=== PATIENT | female | born 1935 | race Caucasian/White ===

== ENCOUNTER 2017-09-02 08:20 | Outpatient (CLI) | payer MEDICARE, BC ==
--- NOTE | ~2017-09-02 | HEMODYNAMI ---
PATIENT:SRINIVAS JURADO MEDICAL RECORD: [id number] : 31 LOCATION:[facility] ADMISSION DATE: 09/02/17 Generatedon:09/02/201710:42 Patient name: SRINIVAS JURADO Patient #: [id number] SSN: DO B: 1935 Date of study: 09/02/2017 Page: Of Hemodynamic Procedure Report Patient Data Patient Demographics Procedure consent was obtained First Name: SRINIVAS Gender: Female Last Name: RHIANNON : 1935 [facility] Initial: P Age: 82 year(s) Patient #: [id number] Race: Unknown Additional ID: [id number] Contact details Address: [facility] [place] State: [place] City: [place] Zip code: [address] Past Medical History Allergies Allergen Reaction Date Comments Reported Codeine 09/02/2017 Penicillins 09/02/2017 Penicillins 09/02/2017 Sulfa drugs 09/02/2017 Other allergy 09/02/2017 zofrelizabeth Levaquin Admission Admission Data Admission Date: 09/02/2017 Admission Time: 8:20 Procedure Procedure Types Cath Procedure Diagnostic Procedure [facility] w/Coronaries Miscellaneous Procedures Moderate Sedation up to 15 minutes Procedure Description Procedure Date Procedure Date: 09/02/2017 Procedure Start Time: 10:27 Procedure End Time: 10:41 Procedure Staff Name Function Mookie Vargas MD Performing Physician Dania Forrester RT Scrub Tiffany Hogan RN Nurse Getachew Moss RT Monitor Procedure Data Cath Procedure Fluoroscopy Diagnostic fluoroscopy Total fluoroscopy Time: 0.9 time: 0.9 min min Diagnostic fluoroscopy Total fluoroscopy dose: 157 dose: 157 mGy mGy Contrast Material Contrast Material Type Amount (ml) Isovue 300 29 Entry Location Entry Primary Successful Side Size Upsize Upsize Entry Closure Cerda ccessful Closure Location (Fr) 1 (Fr) 2 (Fr) Remarks Device Remarks Radial Right 6 Fr Mechanical artery Short Compression Estimated blood loss: 5 ml Diagnostic catheters Device Type Used For End Catheter Placement Diagnostic Terumo Procedure Optitorque 5Fr [place] 4.5 catheter Procedure Complications No complications Procedure Medications Medication Administration Route Dosage Oxygen NC 2 l/min Lidocaine 2% added to field 20 Heparin Flush Bag added to field 2 bags (1000units/500ml NS) 0.9% NaCl I.V. 100 ml/hr Versed I.V. 1 mg Fentanyl I.V. 50 mcg Versed I.V. 1 mg Fentanyl I.V. 50 mcg Versed I.V. 0.5 mg Fentanyl I.V. 25 mcg Radial Cocktail I.A. 1 syringe (Verapomil 2mg/Nitro 400mcg/Heparin 1500units) Hemodynamics Rest Heart Rate: 55 (bpm) Snapshots Pre Cath Intra NCS Post Cath Vital Signs Time Heart Resp SPO2 etCO2 NIBP Rhythm Pain Sedation Rate (ipm) (%) (mmHg) (mmHg) Status Level (bpm) 10:07:27 47 16 99 0 93/48(73) SB 0 (11) 10(A) , No pain 10:12:01 46 14 97 35.7 109/55(86) SB 0 (11) 10(A) , No pain 10:16:40 58 15 97 35.7 98/50(69) SB 0 (11) 10(A) , No pain 10:21:18 53 16 98 38.8 89/41(59) SB 0 (11) 10(A) , No pain 10:25:55 52 15 98 12.1 84/38(59) SB 0 (11) 9(A) , No pain 10:30:27 49 15 98 34.9 89/44(62) SB 0 (11) 9(A) , No pain 10:35:04 71 15 98 35 101/41(65) SB 0 (11) 9(A) , No pain 10:39:42 62 16 96 35.7 82/37(56) SB 0 (11) 10(A) , No pain Medications Time Medication Route Dose Verified Delivered Reason Notes Effectiveness by by 10:12:42 Oxygen NC 2 l/min Mookie Allen used for Sam Hogan RN procedure 10:12:51 Lidocaine 2% added 20ml Mookie Damico for local to vial Sam Vargas MD anesthetic field 10:12:58 Heparin Flush added 2 bags Mookie Damico used for Bag to Sam Vargas MD procedure (1000units/500ml field NS) 10:13:08 0.9% NaCl I.V. 100 Mookie Allen Per ml/hr Sam Hogan RN physician 10:24:40 Versed I.V. 1 mg Mookie Allen for sedation Sam Hogan RN 10:24:46 Fentanyl I.V. 50 mcg Mookie Allen for sedation Sam Hogan RN 10:30:03 Versed I.V. 1 mg Mookie Allen for sedation Sam Hogan RN 10:30:07 Fentanyl I.V. 50 mcg Mookie Allen for sedation Sam Hogan RN 10:34:08 Radial Cocktail I.A. 1 Mookie Damico for (Verapomil syringe Sam Vargas MD vasodilation 2mg/Nitro 400mcg/Heparin 1500units) 10:34:55 Versed I.V. 0.5 mg Mookie Allen for sedation Sam Hogan RN 10:34:59 Fentanyl I.V. 25 mcg Mookie Allen for sedation Sam Hogan RN Procedure Log Time Note 9:49:21 Tiffany Hogan RN sent for patient. Start room use. 9:49:23 Time tracking: Regular hours 9:49:28 Plan of Care:Hemodynamics will remain stable., Cardiac rhythm will remain stable., Comfort level will be maintained., Respiratory function will remain adequate., Patient/ family verbilizes understanding of procedure., Procedure tolerated without complication., Recovers from procedure without complications.. 10:01:43 Patient received from Pre/Post Procedure Room to [facility] 1 Alert and oriented. Tansferred to table in Supine position. 10:01:44 Warm blankets applied, and hollie hugger turned on for patient comfort. 10:01:45 Correct patient and procedure confirmed by team. 10:01:47 Signed procedure consent form obtained from patient. 10:01:48 ECG and BP/O2 sat monitors applied to patient. 10:06:34 Vital chart was started 10:12:42 Oxygen 2 l/min NC was administered by Tiffany Hogan RN; used for procedure; 10:12:51 Lidocaine 2% 20ml vial added to field was administered by Mookie Vargas MD; for local anesthetic; 10:12:58 Heparin Flush Bag (1000units/500ml NS) 2 bags added to field was administered by Mookie Vargas MD; used for procedure; 10:13:08 0.9% NaCl 100 ml/hr I.V. was administered by Tiffany Hogan RN; Per physician; 10:13:54 Baseline sample Acquired. 10:15:06 Rhythm: sinus rhythm 10:15:08 Full Disclosure recording started 10:15:13 H&P Date Dictated: 09/02/2017 Within 30 days and on chart., H&P Addendum completed by physician on day of procedure. (MUST COMPLETE FOR ALL OUTPATIENTS). 10:15:15 Pre-procedure instructions explained to patient. 10:15:17 Pre-op teaching completed and patient verbalized understanding. 10:15:19 Family in waiting room. 10:15:21 Patient NPO since Midnight. 10:15:34 Patient allergic to Codeine 10:16:10 Patient allergic to Penicillins 10:17:48 Patient allergic to Penicillins 10:18:32 Patient allergic to Sulfa drugs 10:18:55 Patient allergic to Other allergyzofran, Levaquin 10:19:05 Is the patient allergic to Iodine/contrast media? No. 10:19:08 Is patient on blood thinner?No 10:20:15 Patient diabetic? No. 10:20:22 Patient not . Patient has had hysterectomy. 10:20:24 Snore? Yes 10:20:27 Previous problem with sedation/anesthesia? No ? 10:20:29 Sleep apnea? No 10:20:30 Deviated septum? No 10:20:32 Opens mouth fully? Yes 10:20:33 Sticks out tongue? Yes 10:20:35 Airway obstruction? No ? 10:20:38 Dentures? No ? 10:20:43 Pre procedure: right dorsailis pedis pulse 1+ Palpable, but thready & weak; easily obliterated 10:20:46 Modified Brown's test Ulnar < 7 seconds 10:20:52 Patient pain scale 0/10 ?. 10:20:58 IV patent on arrival in left forearm with 0.9% NaCl at [facility]. 10:21:09 Lab results completed and on chart. 10:21:13 Right Radial & Right Groin area was prepped with chlora-prep and draped in sterile fashion 10:21:19 Alarms reviewed by R. N. 10:21:21 Sharps counted by scrub and verified by R.N. 10::23 Physician paged 10:24:09 Zero performed for pressure channel P1 10:24:21 Physician arrived 10::24 --------ALL STOP TIME OUT------ ::24 Final Timeout: patient, procedure, and site verified with staff and physician. All members of the team are in agreement. 10:24:26 Right Radial & Right Groin site verified by team. 10::33 Physical assessment completed. ASA score P 2 - A patient with mild systemic disease as per Mookie Vargas MD. 10:24:38 Sedation plan: IV Moderate Sedation Versed, Fentanyl 10:24:40 Versed 1 mg I.V. was administered by Tiffany Hogan RN; for sedation; 10:24:46 Fentanyl 50 mcg I.V. was administered by Tiffany Hogan RN; for sedation; 10:24:51 Use device set Radial Dx 10:24:54 Acist Syringe opened to sterile field. 10:24:55 Tegaderm 4 x 4 opened to sterile field. 10:24:56 Acist Manifold opened to sterile field. 10:24:57 Acist Hand Control opened to sterile field. 10:24:58 Medline Cath Pack opened to sterile field. 10:24:59 Terumo 6Fr Slender Glidesheath opened to sterile field. 10:25:00 Bag Decanter opened to sterile field. 10:25:00 St Francisco 260cm J .035 wire opened to sterile field. 10:25:01 MBrace Wrist Support opened to sterile field. 10:26:57 Procedure started. 10:27:05 Zero performed for pressure channel P1 10:27:27 Local anesthetic to right radial artery with Lidocaine 2% by Mookie Vargas MD.INITIAL ACCESS ONLY 10:30:03 Versed 1 mg I.V. was administered by Tiffany Hogan RN; for sedation; 10:30:07 Fentanyl 50 mcg I.V. was administered by Tiffany Hogan RN; for sedation; 10:33:22 A 6 Fr Short sheath was inserted into the Right Radial artery 10:33:49 A Diagnostic Terumo Optitorque 5Fr [place] 4.5 catheter was advanced over the wire and used for Procedure. 10:34:08 Radial Cocktail (Verapomil 2mg/Nitro 400mcg/Heparin 1500units) 1 syringe I.A. was administered by Mookie Vargas MD; for vasodilation; 10:34:19 LV gram done using GARDINER 10:34:55 Versed 0.5 mg I.V. was administered by Tiffany Hogan RN; for sedation; 10:34:56 EF : 60 % 10:34:59 Fentanyl 25 mcg I.V. was administered by Tiffany Hogan RN; for sedation; 10:35:00 LCA angiography performed. 10:36:04 RCA angiography performed. 10:36:11 Catheter removed. 10:36:20 Terumo TR Band Standard opened to sterile field. 10:36:34 Sheath removed intact; hemostasis achieved with Mechanical Compression to the Right Radial artery. 10:36:37 Procedure ended.(Physican Out) 10:36:53 Fluoroscopy time 00.90 minutes. 10:36:57 Fluoroscopy dose: 157 mGy 10:36:57 Flurop Dose total: 157 10:37:01 Contrast amount:Isovue 300 29ml. 10:37:02 Sharps counted by scrub and verified by R.N. 10:37:07 TR band inflated with 10cc of air. 10:37:09 Insertion/operative site no bleeding no hematoma. 10:37:15 Post Procedure Pulses reassessed and unchanged 10:37:22 Post-procedure physical assessment completed. ASA score P 2 - A patient with mild systemic disease as per Mookie Vargas MD. 10:37:27 Post procedure rhythm: unchanged. 10:37:30 Estimated blood loss: 5 ml 10:37:40 Post procedure instruction explained to patient.Patient verbalizes understanding. 10:37:41 Patient needs reinforcement of post procedure teaching. 10:41:13 Procedure and supply charges have been captured, reviewed, submitted and are correct. 10:41:16 Procedure Complication : No complications 10:41:22 Vital chart was stopped 10:41:23 See physician's report for complete and final results. 10:41:25 Report given to Pre/Post Procedure Room. 10:41:28 Patient transfered to Pre/Post Procedure Room with Stretcher. 10:41:30 Procedure ended. 10:41:30 Full Disclosure recording stopped 10:41:36 End room use (Document Last) Device Usage Item Name Manufacture Quantity Catalog Hospital Part Current Minimal Lot# / Number Charge Number Stock Stock [facility]# [facility] [id number] [id number] [id number] [id number] 20 Syringe [employer] Inc Tegaderm 4 3M 1 [id number] [id number] 987715 302180 5 x 4 Acist Acist 1 13036 373382 818935 305928 5 Manifold Medical Systems Inc Acist Hand Acist 1 35841 716090 500158 091966 5 Control Medical Systems Inc Medline Cardinal 1 [id number] 390661 82298 716006 5 Cath Pack Health Terumo 6Fr Terumo 1 [id number] 546157 469975 995123 40 Slender Glidesheath Bag Microtek 1 2002S 015875 19571 396494 [address] St Francisco 1 [id number] 924067 829361 662539 30 260cm J .035 wire MBrace Advanced 1 [id number] 718417 36452 828017 5 Wrist Vascular Support Dynamics Diagnostic Terumo 1 10-7657 108087 586516 164124 5 Terumo Optitorque 5Fr [place] 4.5 catheter Terumo TR Terumo 1 [id number] 943169 208325 820163 40 Band Standard Signature Audit [place] Stage Time Signature Unsigned Intra-Procedure 09/02/2017 Dania Forrester 10:42:03 AM RT(R) Signatures Monitor : Getachew Moss RT Signature : Date : Time : [place] [id number] [place] [address]
[~2017-09-02 08:20] MED LIST: ACIDOPHILUS LAC1 CAP PO; ESTRACE1 MG PO; FOLTX TABLET1 EACH PO; MULTIPLE VITAMI1 TA1 PO; PLAVIX75 MG PO; POTASSIUM99 M1 PO; PRAVACHOL40 MG PO; TRAZODONE HCL50 MG PO; VITAMIN C250 MG PO; VITAMIN D31000 UNI2 PO
[2017-09-02 08:56] VITALS: BP 104/50; BMI 23.0
[2017-09-02 09:03] LABS: BASOPHILS 0.6 % (0-2); HEMATOCRIT 42.9 % (36.0-48.0); IMMATURE GRANULOCYTES 0.2 % (0-5); LYMPHOCYTES 30.9 % (15-50); MCH 31.8 pg (26.0-34.0); MCHC 32.6 g/dL (31.0-37.0); MCV 97.5 fL (80.0-100.0); MEAN PLATELET VOLUME 10.2 fL (7.4-10.4); MONOCYTES 7.7 % (2-11); NEUTROPHILS 58.6 % (40-80); PLATELET COUNT 199 10x3/uL (130-400); RDW 13.4 % (11.5-14.5); WBC 5.1 10x3/uL (4.8-10.8)
[2017-09-02 09:16] LABS: ANION GAP 13.1 mmol/L (8-16); CALCIUM 8.9 mg/dL (8.5-10.1); CREATININE - SERUM 0.9 mg/dL (0.6-1.3); POTASSIUM - SERUM 4.1 mmol/L (3.5-5.1)
--- NOTE | 2017-09-02 11:10 | NUR ---
2L NC, NO RESP DISTRESS NOTED. RIGHT WRIST TR BAND, NO BLEEDING NOTED. NO C/O CHEST PAIN OR NAUSEA. VSS. FAMILY AT BEDSIDE, CALL LIGHT WITHIN REACH.
--- NOTE | 2017-09-02 11:40 | NUR ---
2L NC, NO RESP DISTRESS. RIGHT WRIST TR BAND CDI, NO BLEEDING OR HEMATOMA NOTED. NO C/O PAIN OR NAUSEA. VSS. WILL CONTINUE TO MONITOR.
--- NOTE | 2017-09-02 12:00 | NUR ---
2CC OF AIR REMOVED FROM TR BAND, NO BLEEDING NOTED.
--- NOTE | 2017-09-02 12:15 | NUR ---
2CC OF AIR REMOVED FROM TR BAND, NO BLEEDING NOTED.
--- NOTE | 2017-09-02 12:30 | NUR ---
2CC OF AIR REMOVED FROM TR BAND, NO BLEEDING.
--- NOTE | 2017-09-02 12:45 | NUR ---
LEFT WRIST PIV D/C'D WITH CATHETER INTACT, BAND AID TO SITE. 2CC OF AIR REMOVED FROM TR BAND. UP TO BEDSIDE TO GET DRESSED.
--- NOTE | 2017-09-02 12:50 | NUR ---
TO RESTROOM TO VOID.
--- NOTE | 2017-09-02 12:55 | NUR ---
DISCHARGE INSTRUCTIONS GIVEN, VERBALIZED UNDERSTANDING. REMAINING AIR REMOVED FROM TR BAND, DRESSING PLACED TO SITE.
--- NOTE | 2017-09-02 13:05 | NUR ---
TAKEN OUT VIA WHEELCHAIR BY CATH STERILE PROC TECH. LEFT FACILITY WITH FAMILY MEMBER AND ALL PERSONAL BELONGINGS.
--- NOTE | 2017-09-13 16:56 | HP ---
PATIENT: SRINIVAS JURADO MEDICAL RECORD: [id number] ACCOUNT: [id number] LOCATION:[facility] : 31 ADMISSION DATE: 09/02/17 HISTORY AND PHYSICAL EXAMINATION DIAGNOSES: 1. Angina. 2. Abnormal nuclear stress test. 3. Coronary artery disease. 4. Hyperlipidemia. HISTORY OF PRESENT ILLNESS: Mrs. Jurado presents with anginal symptomatology, found to have significantly abnormal nuclear stress test, now brought for cardiac catheterization. PHYSICAL EXAMINATION: GENERAL APPEARANCE: Well-nourished, well-developed, appears stated age. Level of distress, comfortable. PSYCHIATRIC: Mental status, alert, normal affect. Orientation, oriented to time, place and person. EYES: Lids and conjunctiva, noninjected. No discharge, no pallor. ENT: Lips, teeth, gums, normal dentition. Oropharynx, no cyanosis, no pallor. NECK: Carotid arteries, bilateral normal upstroke, no bruits, no thrills. JUGULAR VEINS: No jugular venous pressure or distention. CERVICAL LYMPH NODES: Nontender, nonenlarged. THYROID: Not enlarged. Nontender. No nodules. LUNGS: Respiratory effort, unlabored. CHEST: Normal curvature. No thoracic deformity. No chest wall tenderness. Percussion, resonant. Auscultation, clear. No wheezes, no rales, no rhonchi. CARDIOVASCULAR: Precordial exam, nondisplaced. No heaves or pericardial thrills. Rate and rhythm, regular. Heart sounds, normal S1, normal S2. No S3, no gallop, no rub. Systolic murmur, not heard. Diastolic murmur, not heard. EXTREMITIES: No cyanosis, no edema. Peripheral pulses, full and equal in all extremities, except as noted. No bruits appreciated. ABDOMEN: Soft, nondistended. Normal aorta. No bruit. Nontender. No masses. Liver, nontender, no hepatomegaly. Spleen, nontender, no splenomegaly. MUSCULOSKELETAL: No joint tenderness. No joint swelling. No erythema. NEUROLOGICAL: Normal gait, normal strength, normal tone. SKIN: Warm and dry. REVIEW OF SYSTEMS: The patient reports easy bruising but reports no swollen glands. The patient reports no fever, no night sweats, no significant weight gain, no significant weight loss. No significant exercise tolerance. The patient reports no dry eyes, no irritation, no vision change. Patient reports no difficulty hearing and no ear pain. Patient reports no frequent nose bleeds or nose and sinus problems. Patient reports on arm pain on exertion. No shortness of breath while lying down. No history of heart murmur. Patient reports no cough, no wheezing or coughing up blood. Patient reports no abdominal pain, no vomiting. Normal appetite. No diarrhea and not vomiting blood. No nausea and no constipation. Patient reports no incontinence. No difficulty urinating. No hematuria. No increased frequency. Patient reports no muscle aches. No weakness, no arthralgias, no back pain. No swelling of the extremities. Patient reports no abnormal mole, no jaundice, no rashes. Reports no loss of consciousness. No weakness and no numbness. No seizures, dizziness, or headaches. The patient reports no depression, no sleep disturbance, feeling HISTORY AND PHYSICAL [id number] SRINIVAS JURADO safe in a relationship and no alcohol abuse. Patient reports on fatigue. Reports no runny nose or sinus pressure. No itching, no hives, and no frequent sneezing. OVERALL IMPRESSION: Anginal symptomatology with significantly abnormal nuclear stress test was high probability. She has hemodynamically significant coronary artery disease. We will proceed with coronary angiography. Further care depends upon findings of the angiography. TRANSINT:[id number] Voice Confirmation ID: [id number] DOCUMENT ID: [id number] RAQUEL CHISHOLM MD at 1656 CC: [id number] DICTATION DATE: 09/02/17900 COTTON TIPPER: 09/02/17 0936 DEP CLI 09/02/17 [place] [id number] [place] [address]
--- NOTE | 2017-09-13 16:56 | OP ---
PATIENT NAME: SRINIVAS JURADO MEDICAL RECORD: [id number] :31 LOCATION:D.CAT ADMISSION DATE: SURGEON: RAQUEL CHISHOLM MD DATE OF OPERATION: 09/02/2017 PROCEDURES: 1. Left heart catheterization. 2. Selective coronary angiography. 3. Left ventriculogram. INDICATION: Chest pain compatible with angina. PROCEDURE IN DETAIL: After informed consent was obtained and after detailed explanation of risks, benefits as well as alternative therapies, the patient elected to proceed with angiogram and heart catheterization. The right radial area was prepped and draped in normal sterile fashion. The right radial artery was cannulated via modified Seldinger technique with placement of 5-Kittitian sheath. All catheters exchanged through this sheath. FINDINGS: The left ventriculogram was performed in standard 30-degree GARDINER view, reveals good cardiac wall motion throughout all segments. Overall ejection fraction estimated at 60%. SELECTIVE CORONARY ANGIOGRAPHY: Left main, left anterior descending, left circumflex, and right coronary artery are all smooth-walled vessels with no angiographic evidence of coronary artery disease. OVERALL IMPRESSION: 1. No angiographic evidence of coronary artery disease. 2. Normal left heart pressures. 3. Normal left ventricular systolic function. Chest pain is noncardiac in etiology. No further cardiac workup needs to be ascertained. TRANSINT:[id number] Voice Confirmation ID: [id number] DOCUMENT ID: [id number] RAQUEL CHISHOLM MD at 1656 CC: [id number] DICTATION DATE: 09/02/17 1038 INSTRUMENTATION MANAGER: 09/02/17 1154 [facility] CLI 09/02/17 [place] [id number] [place] [id number]
== END 2017-09-02 13:05 | disposition home or self-care (01) ==
LOC: D.CATH 08:20
PROVIDERS: Internal Medicine Interventional Cardiology
DX: I25.119 Atherosclerotic heart disease of native coronary artery with unspecified angina pectoris (principal); R94.30 Abnormal result of cardiovascular function study, unspecified; E78.5 Hyperlipidemia, unspecified; Z01.812 Encounter for preprocedural laboratory examination

== ENCOUNTER → 2020-04-22 13:48 | Outpatient (CLI) | payer MEDICARE, BC | END | disposition home or self-care (01) | LOC: D.HCCECHO 13:48 | PROVIDERS: ATTEND Internal Medicine Cardiovascular Disease | DX: R06.00 Dyspnea, unspecified (principal) ==